=== PATIENT | male | born 1945 ===

== ENCOUNTER 2017-05-06 10:02 | Inpatient (IN) | payer OTHER ==
[2017-05-06] MEDS ORDERED: ASPIRIN 81 MG CHEWABLE TAB PO ONE (10:15)
--- NOTE | 2017-05-06 10:15 | CPEKG ---
Heart Rate: 65 RR Interval: 923 P-R Interval: 245 QRSD Interval: 100 QT Interval: 412 QTC Interval: 429 P [place]: 63 QRS [place]: 68 T Wave [place]: 114 EKG Severity - ABNORMAL ECG - EKG Impression: ACUTE AR EKG Impression: BRADYCARDIA WITH IRREGULAR RATE 39-53 EKG Impression: FIRST DEGREE AV BLOCK EKG Impression: INFERIOR INJURY, PROBABLE EARLY ACUTE INFARCT EKG Impression: CONSIDER POSTERIOR WALL INVOLVEMENT Electronically Signed By: Gloria Lindsey 06-May-2017 15:53:23
[2017-05-06] MEDS ORDERED: ASPIRIN 81 MG CHEWABLE TAB ONE (10:16)
[2017-05-06] MEDS ORDERED: NITROGLYCERIN 0.4 MG BTL SL ONE (10:16)
--- NOTE | 2017-05-06 10:20 | EDPHY ---
HPI/HX/ROS/PE/MDM Narrative: CHIEF COMPLAINT: Chest pain. HISTORY OF PRESENT ILLNESS: This patient is a 72 year old male with history of prior myocardial infarction arriving with his complaining of acute chest pain onset 1.5 hours ago, around 8:45. He is visiting from [place], arriving five days ago, and his prior CO was managed in [place]. He does not believe he had any stents placed at that time. This morning, he was swimming at the gym and when he finished, he began to feel chest pressure bilaterally. Pain was described as a heaviness, burning, with radiation to both shoulders. No diaphoresis. No nausea or vomiting. No shortness of breath. His chest discomfort today is similar to that with his prior CO. At that time he had jaw and shoulder pain as well, which he does not note at this time. He does not take any daily medications, including aspirin. No fever, chills, vomiting, diarrhea, urinary complaints, headache, lightheadedness. REVIEW OF SYSTEMS: Aside from elements discussed in the HPI, a comprehensive 10-point review of systems was reviewed and is negative. PAST MEDICAL HISTORY: CO SOCIAL HISTORY: Nonsmoker, no alcohol use. Visiting from [place]. Retired. at bedside. VITAL SIGNS: Reviewed by me GENERAL: Well-developed, well-nourished, appears somewhat uncomfortable. HEENT: Atraumatic. Eyes: No icterus, no injection. Mouth: moist mucous membranes. No erythema or lesions. Neck: supple with no adenopathy. LUNGS: Clear to auscultation bilaterally, no wheezes, rhonchi or rales. CARDIAC: Regular rate and rhythm, no rubs, murmurs or gallops. No chest wall pain. ABDOMEN: Soft, nontender, nondistended, bowel sounds normal. BACK: No CVA tenderness. EXTREMITIES: No trauma. No edema. Range of motion is normal throughout. NEURO: Alert and oriented, grossly nonfocal. SKIN: Warm and dry, no rash. No diaphoresis. PSYCHIATRIC: Normal mentation, no agitation. ED Course: 10:10 Evaluated patient. EKG shows signs of acute CO. Called cardiac alert. The 12 lead EKG was interpreted by myself. See hard copy and/or "tracemaster" electronic copy for interpretation. EKG shows ST elevation inferiorly, reciprocal changes and ST depression laterally--consistent with acute inferior myocardial infarction. Dr. Zaman present to the emergency department immediately after the cardiac alert was called. 10:22 Patient has been transferred to the clinical lab scientist under care of Dr. Zaman, rig welder. MDM: After history and physical examination, the differential for chest pain was considered, including but not limited to, myocardial ischemia, acute coronary syndrome, pulmonary embolus, chest wall pain, pleural inflammation and pulmonary infectious causes. - Data Points Medications Given: Discontinued Medications Aspirin (Aspirin) 324 mg PO EDNOW ONE Stop: 05/06/17 10:16 Last Admin: 05/06/17 10:15 Dose: 324 mg General Time Seen by Provider: 05/06/17 10:10 Initial Vital Signs: Initial Vital Signs Temperature (C) 36.6 C 05/06/17 10:05 Heart Rate 72 05/06/17 10:05 Respiratory Rate 18 05/06/17 10:05 Blood Pressure 162/127 H 05/06/17 10:05 O2 Sat (%) 97 05/06/17 10:05 O2 Delivery Mode Room Air Allergies/Adverse Reactions: No Known Allergies Allergy (Unverified 05/06/17 10:13) Home Medications: Medication Instructions Recorded Aspirin EC [Aspirin EC 81 mg (*)] 81 mg PO DAILY tab 05/07/17 Atorvastatin Calcium [Lipitor 40 40 mg PO DAILY #30 tab 05/07/17 mg (*)] Metoprolol Tartrate [Lopressor 25 25 mg PO BID #60 tab 05/07/17 mg (*)] Ticagrelor [Brilinta] 90 mg PO BID #60 tab 05/07/17 oxyCODONE/APAP 5/325 [Percocet 1 - 2 tab PO Q4HRS PRN #7 tab 05/07/17 5/325 (*)] Departure - Departure Disposition: [facility] Inpatient Acute Clinical Impression: Acute myocardial infarction Condition: Serious Report Scribed for: Gloria Lindsey Report Scribed by: Palma Christianson Date of Report: 05/06/17 Time of Report: 13:34 Physician Review and Approval Statement: Portions of this note were transcribed by a director medical affairs. I personally performed a history, physical exam, medical decision making, and confirmed accuracy of information the transcribed note.
[2017-05-06] MEDS ORDERED: LIDOCAINE 1% 300 MG/30 ML SDV ONE (10:25)
[2017-05-06] MEDS ORDERED: IOPAMIDOL (ISOVUE-370) 150 ML BTL IV ONE (10:26)
[2017-05-06] MEDS ORDERED: MIDAZOLAM 2 MG/2 ML VIAL ONE (10:26)
[2017-05-06] MEDS ORDERED: fentaNYL 100 MCG/2 ML INJ ONE (10:26)
[2017-05-06] MEDS ORDERED: FAMOTIDINE 20 MG/NACL/50 ML BAG IV ONE (10:31)
[2017-05-06] MEDS ORDERED: ATROPINE SULFATE 1 MG/10 ML SYR ONE (10:31)
[2017-05-06] MEDS ORDERED: EPINEPHrine 1 MG/10 ML SYR IVP ONE (10:31)
[2017-05-06] MEDS ORDERED: NITROGLYCERIN 1,500 MCG/15 ML VIAL MISC ONE (10:32)
[2017-05-06] MEDS ORDERED: BIVALIRUDIN 250 MG/5 ML VIAL IV ONE (10:32)
[2017-05-06] MEDS ORDERED: DOPamine/DEXTROSE/250 ML BAG IV ONE (10:32)
--- NOTE | 2017-05-06 11:15 | GHP ---
[f rep st] HISTORY AND PHYSICAL DATE OF ADMISSION: 05/06/2017 INDICATIONS: ST-elevation myocardial infarction. HISTORY OF PRESENT ILLNESS: The patient is a pleasant 72-year-old male. [facility]. He states that he has a history of coronary artery disease and kenneth ral years ago had a myocardial infarction when he was in [place], [place]. He does state that he was managed conservatively. He does not think that he underwent cardiac catheterization and does not re call having had a stent. He has done well since. Interestingly, he is not on any medications. He w as at the gym earlier today swimming when he developed the abrupt onset of precordial chest discomfor t. This was a heaviness, burning sensation, radiating up into his shoulders. As a result, he came t o the emergency department here. On arrival, he was hemodynamically stable. His initial electrocard iogram demonstrated sinus rhythm at 65 beats per minute with atrial ectopy. He had evidence of ST el evations in the inferior leads with reciprocal anterolateral ST depressions. His ST segments were as high as 2 mm. PAST MEDICAL HISTORY: Coronary artery disease, as described above. HOME MEDICATIONS: None. ALLERGIES: None. SOCIAL HISTORY: He is a lifelong nonsmoker. He does not use alcohol. He is accompanied by his . He used to work professionally in engineering and also taught. He exercises at least 6 days a [employer]. PAST SURGICAL HISTORY: He denies any recent surgical procedures. FAMILY HISTORY: Noncontributory. REVIEW OF SYSTEMS: A full 10-point review of systems was performed and was otherwise negative. PHYSICAL EXAMINATION: VITAL SIGNS: Blood pressure 166/94, heart rate currently 80 beats per minute. He does not have an oxygen requirement. He is afebrile. GENERAL: He is a healthy white male, in no acute distress. HEENT: Normocephalic, atraumatic. He has anicteric sclerae. Oropharynx unremar kable. 2+ carotids, with no jugular venous distention. RESPIRATORY: He speaks in full sentences, u sing no accessory muscles. On auscultation, he has clear lung white bilaterally. CARDIAC: Precord ial inspection is unremarkable. PMI is nondisplaced. On auscultation, he has an irregular heart rhy thm. He has no murmurs, gallops or rubs. ABDOMEN: Soft and nontender. Normoactive bowel sounds. E XTREMITIES: Warm and dry, well perfused. He has no edema. Vasculature has 2+ radial and 2+ femoral arterial pulses. DATABASE: As above. IMPRESSION: The patient is a 72-year-old male who has known coronary disease, who presents now at ap proximately 90 minutes into what appears to be an inferior wall myocardial infarction. PLAN: Plan is for urgent cardiac catheterization with plans for percutaneous revascularization. The risks, benefits, and alternatives were discussed with him. He is in agreement. Verbal consent was obtained. Further recommendations will be made pending his angiogram. /[id number]/MODL
[2017-05-06] MEDS ORDERED: TICAGRELOR 90 MG TAB ONE (11:18)
[2017-05-06] MEDS ORDERED: ONDANSETRON 4 MG/2 ML VIAL IVP PRN (11:32)
[2017-05-06] MEDS ORDERED: ASPIRIN EC 325 MG TAB PO ONE (11:32)
[2017-05-06] MEDS ORDERED: TICAGRELOR 90 MG TAB PO ONE (11:32)
[2017-05-06] MEDS ORDERED: TEMAZEPAM 15 MG CAP PO PRN (11:32)
[2017-05-06] MEDS ORDERED: OXYCODONE/APAP 5/325 TAB PO PRN (11:32)
[2017-05-06] MEDS ORDERED: ATROPINE SULFATE 1 MG/10 ML SYR IVP PRN (11:32)
[2017-05-06] MEDS ORDERED: LORazepam 2 MG/ML INJ IVP PRN (11:32)
[2017-05-06] MEDS ORDERED: HYDROCODONE/APAP 5/325 TAB PO PRN (11:32)
[2017-05-06] MEDS ORDERED: NITROGLYCERIN 0.4 MG BTL SL PRN (11:32)
--- NOTE | 2017-05-06 11:37 | PDPROPOC ---
Sedation Plan of Care Sedation Plan of Care: mental status noted ASA Classification: ASA 2 Planned drugs: fentanyl, midazolam Mallampati Score: Class 2 Mallampati Reference Image: Patient passed 3-3-2 rule?: Yes
--- NOTE | 2017-05-06 11:55 | CPIP ---
[f rep st] INVASIVE CARDIAC PROCEDURE DATE OF PROCEDURE: 05/06/2017 PROCEDURES: 1. Coronary angiography. 2. Stenting of right coronary artery with Synergy drug-eluting stent. INDICATION: Acute inferior ST-segment elevation myocardial infarction. ACCESS AND CORONARY ANGIOGRAPHY: Access and coronary angiography were performed by Dr. Mandeep Zaman. C oronary angiography was notable for a 100% occlusion of the proximal right coronary artery. Percutaneous coronary intervention of the right coronary artery. A 6-Uzbek hockey-stick catheter wa s advanced to the right coronary artery and images obtained. Angiography confirmed the presence of a 100% total occlusion of the proximal right coronary artery. Several attempts were made at trying to pass the Luge wire into the distal vessel. These were unsuccessful. The Luge wire was exchanged fo r a Hha 50 wire, which was successfully navigated into the distal vessel. The lesion behaved much more like a calcified plaque as opposed to a thrombotic occlusion. A 2.5 x 15 Emerge balloon was use d to pre-dilate the lesion. Followup angiography demonstrated TONYA-3 flow with significant residual stenosis. A 2.5 x 16 Synergy drug-eluting stent was then placed across the lesion and deployed. Fol lowup angiography demonstrated TONYA-3 flow, no residual stenosis. COMPLICATIONS: None. CONCLUSIONS: 1. Two vessel coronary artery disease. 2. Reduced left ventricular systolic function with an estimated ejection fraction of 45% and inferio r hypokinesis. 3. Status post successful percutaneous coronary intervention in the right coronary artery using Syne rgy drug-eluting stent. 4. Consider staged percutaneous coronary intervention of the left anterior descending coronary arter y prior to discharge. /[id number]/MODL
--- NOTE | 2017-05-06 11:56 | CPEKG ---
Heart Rate: 83 RR Interval: 723 P-R Interval: 172 QRSD Interval: 94 QT Interval: 384 QTC Interval: 452 P [place]: 68 QRS [place]: -17 T Wave [place]: 45 EKG Severity - ABNORMAL ECG - EKG Impression: SINUS RHYTHM EKG Impression: INFERIOR INFARCT, OLD EKG Impression: CONSIDER POSTERIOR WALL INVOLVEMENT EKG Impression: COMPARED WITH 06 MAY 2017 AT 10:13 AM, INFERIOR-POSTERIOR ACUTE INJURY PATTERN EKG Impression: HAS RESOLVED. RHYTHM IS SINUS. INFERIOR Q WAVES NOW PRESENT Electronically Signed By: Blessing Moore 06-May-2017 14:17:44
[2017-05-06 18:24] LABS: % IMMATURE GRANULYOCYTES 0.3 % (0.0-1.1); ABSOLUTE IMMATURE GRANULOCYTES 0.03 10^3/uL (0.00-0.10); ADD DIFF? NO; ADD MORPH? NO; ADD SCAN? NO; ATYPICAL LYMPHOCYTE FLAG 0 (0-99); FRAGMENT RBC FLAG 0 (0-99); HEMOGLOBIN 14.2 g/dL (13.7-17.5); LEFT SHIFT FLG 0 (0-99); LIPEMIA HEMOLYSIS FLAG 90 (0-99); MEAN CELL HEMOGLOBIN 32.6 pg (27.9-34.1); MEAN CELL HEMOGLOBIN CONCENTR. 35.5 g/dL (32.4-36.7); MEAN PLATELET VOLUME 10.2 fL (8.7-11.7); PLATELET CLUMPS FLAG 0 (0-99); PLATELET COUNT 179 10^3/uL (150-400); RED BLOOD CELL COUNT 4.35 10^6/uL (4.40-6.38); RED CELL DISTRIBUTION WIDTH 12.4 % (11.5-15.2)
[2017-05-06 18:39] LABS: ANION GAP 12 mEq/L (8-16); CALCIUM 9.5 mg/dL (8.5-10.4); CARBON DIOXIDE 21 mEq/l (22-31); CHLORIDE 106 mEq/L (97-110); GLOMERULAR FILTRATION RATE > 60; GLUCOSE 104 mg/dL (70-100); SODIUM 139 mEq/L (134-144)
[2017-05-06 18:44] LABS: CHOLESTEROL 216 mg/dL (140-220); CHOLESTEROL/HDL RATIO 5.68 RATIO (1.00-4.97); HIGH DENSITY LIPOPROTEIN 38 mg/dL (40-65); LDL/HDL RATIO 4.16 RATIO (1.00-3.64); LOW DENSITY LIPOPROTEIN 158 mg/dL (80-100); NON-HIGH DENSITY LIPOPROTEIN 178 mg/dL (90-129); TRIGLYCERIDE 100 mg/dL (40-150); VERY LOW DENSITY LIPOPROTEINS 20 mg/dL (8-25)
[2017-05-06] MEDS: ATORVASTATIN CALCIUM 40 MG TAB PO SCH (20:23)
[2017-05-06 20:48] LABS: CK-MB INTERPRETATION POSITIVE (NEGATIVE)
[2017-05-06] MEDS: TICAGRELOR 90 MG TAB PO SCH (23:24)
[2017-05-07 04:42] LABS: % IMMATURE GRANULYOCYTES 0.4 % (0.0-1.1); ABSOLUTE IMMATURE GRANULOCYTES 0.04 10^3/uL (0.00-0.10); ADD DIFF? NO; ADD MORPH? NO; ADD SCAN? NO; ATYPICAL LYMPHOCYTE FLAG 0 (0-99); FRAGMENT RBC FLAG 0 (0-99); HEMATOCRIT 39.9 % (40.0-51.0); HEMOGLOBIN 13.9 g/dL (13.7-17.5); LEFT SHIFT FLG 0 (0-99); LIPEMIA HEMOLYSIS FLAG 90 (0-99); MEAN CELL HEMOGLOBIN 32.3 pg (27.9-34.1); MEAN CELL HEMOGLOBIN CONCENTR. 34.8 g/dL (32.4-36.7); MEAN CELL VOLUME 92.8 fL (81.5-99.8); MEAN PLATELET VOLUME 10.5 fL (8.7-11.7); PLATELET CLUMPS FLAG 30 (0-99); PLATELET COUNT 159 10^3/uL (150-400); RED CELL DISTRIBUTION WIDTH 12.6 % (11.5-15.2)
[2017-05-07 05:06] LABS: ANION GAP 11 mEq/L (8-16); CALCIUM 9.2 mg/dL (8.5-10.4); CARBON DIOXIDE 22 mEq/l (22-31); CHLORIDE 107 mEq/L (97-110); GLOMERULAR FILTRATION RATE > 60; GLUCOSE 102 mg/dL (70-100); POTASSIUM 3.8 mEq/L (3.5-5.2); SODIUM 140 mEq/L (134-144)
[2017-05-07 05:50] LABS: CK-MB INTERPRETATION POSITIVE (NEGATIVE)
[2017-05-07] MEDS ORDERED: ASPIRIN EC 81 MG TAB PO SCH (09:00)
--- NOTE | 2017-05-07 09:08 | ECHO ---
[id number] + + [address] : : [place] [address] : : [phone] + Adult Echocardiographic Report + ---+ :Name: IKE BANERJEEUnique Date: 05/07/2017 07:50 AM : : Hospital Admission Number: [id number] Location: 257: :: 1945 Gender: Male Height: 60 in : :Age: 72 yrs Race: PTNP Weight: 154 lb : :Reason For Study: Eval LV Fx : : BSA: 1.7 meters2 : :History: Post Stents/NE : + ---+ MMode/2D Measurements & Calculations IVSd: 0.85 cm LVIDd: 4.3 cm FS: 38.0 % Ao root diam: 3.8 cm LVPWd: 0.96 cm LVIDs: 2.7 cm EDV(Teich): 85.1 ml ACS: 1.9 cm ESV(Teich): 26.9 ml EF(Teich): 68.4 % Normal Measurement Values: + + :LVIDd (3.5-5.7cm) IVSd (0.6-1.1cm) LVPWd (0.6-1.1cm) Aortic Root (2.0-3.7cm)Left Atrium (1.5-4.0cm): :LV Vol(d) (76-115ml) LV Vol(s) (29-48ml) Ejec Fraction (50-65%)PV Hemal (0.6- 1.2m/s) TV Hemal (0.4-1.0m/s) : :MV E Hemal (0.8-1.0m/s)MV A Hemal (0.3-1.0m/s)LVOT Hemal (0.7-1.2m/s) Asc Ao Hemal ( 0.9-1.8m/s) : + + Doppler Measurements & Calculations MV E max hemal: Ao V2 max: LV V1 max: PA V2 max: 47.9 cm/sec 120.8 cm/sec 93.8 cm/sec 80.1 cm/sec MV A max hemal: Ao max P.8 mmHg LV V1 max PG: PA max P.6 cm/sec 3.5 mmHg 2.6 mmHg MV E/A: 0.69 Left Ventricle The left ventricle is normal in size. There is normal left ventricular wall thickness. Left ventricular systolic function is low normal. Ejection Fraction = 50-55%. There is Doppler evidence for diastolic dysfunction. There is inferior wall hypokinesis. Right Ventricle The right ventricle is normal in size and function. Atria The left atrial size is normal. Right atrial size is normal. Mitral Valve The mitral valve is normal in structure and function. There is no evidence of mitral valve prolapse. There is no mitral valve stenosis. There is trace mitral regurgitation. Tricuspid Valve Normal tricuspid valve. No tricuspid regurgitation. Aortic Valve The aortic valve is normal in structure and function. The aortic valve is trileaflet. There is no aortic stenosis. There is no aortic insufficiency. Pulmonic Valve The pulmonic valve is normal in structure and function. There is no pulmonic valvular regurgitation. Great Vessels The aortic root is normal size. Pericardium/Pleural trivial pericardial effusion. Conclusion A complete two-dimensional transthoracic echocardiogram was performed (2D, M-mode, Doppler and color flow Doppler). Left ventricular systolic function is low normal. There is severe inferior wall hypokinesis involving the basal and mid segments. Ejection Fraction = 50-55%. There is Doppler evidence for diastolic dysfunction. The right ventricle is normal in size and function. The left atrial size is normal. Normal appearing valvular morphology. There is trace mitral regurgitation. Trivial pericardial effusion. Final Reading Physician: Mira Farrell signed on 05/07/2017 09:07 AM Ordering Physician: Les Zaman Performed By: Orville Lozada, SHIRLENECS
[2017-05-07] MEDS: TICAGRELOR 90 MG TAB PO SCH (09:09)
[2017-05-07] MEDS: ATORVASTATIN CALCIUM 40 MG TAB PO SCH (09:09)
[2017-05-07] MEDS: METOPROLOL TARTRATE 25 MG TAB PO SCH ×2 (09:09→09:18)
--- NOTE | 2017-05-07 09:10 | CPEKG ---
Heart Rate: 68 RR Interval: 882 P-R Interval: 140 QRSD Interval: 86 QT Interval: 432 QTC Interval: 460 P [place]: 63 QRS [place]: -25 T Wave [place]: -29 EKG Severity - ABNORMAL ECG - EKG Impression: SINUS RHYTHM EKG Impression: INFERIOR INFARCT, AGE INDETERMINATE EKG Impression: PROBABLE POSTERIOR INFARCT EKG Impression: COMPARED WITH 2016 AT 11:53, NO SIG CHANGE Electronically Signed By: Blessing Moore 07-May-2017 21:36:36
--- NOTE | 2017-05-07 09:28 | PDDXCAT ---
Diagnostic Cath Note - . Date: 05/06/17 Housekeeping Director: Austyn Indication: other (Inferior wall ST-elevation myocardial infarction.) - Procedure Access: right groin Procedure: coronary angiography - Materials Left Heart Cath size: 6F Left Heart Cath materials: JL4.0, JR4.0 - Findings-Left Heart Catheterization LM: Large caliber vessel with appropriate bifurcation into the left anterior descending and circumflex distributions. Angiographically normal. LAD: Moderate caliber vessel. Single diagonal branch. Tandem 80% followed by 70% lesions in the proximal left anterior descending. 50% lesion at the origin of the 1st diagonal which originates from the 2nd lesion within the left anterior descending. LCX: Moderate caliber. 2 obtuse marginal branches identified. 50% mid stenosis. 40% lesion at the origin of the 1st obtuse marginal branch. RCA: 100% thrombotic occlusion of the proximal vessel. Complications: None. Estimated blood loss: <50ml Closure method: other (Deferred.) Assessment: 1. Acute ST elevation inferior wall myocardial infarction. 2. Angiography demonstrating thrombotic occlusion of the proximal portion of the right coronary artery. 3. Residual disease including moderate disease of the proximal left anterior descending and 1st diagonal branch. Plan: She will be referred for percutaneous revascularization of the right coronary artery. Intervention: See separate dictation. Patient Problems: Problems Problem Status Onset Acute myocardial infarction Acute
[2017-05-07 10:36] VITALS: PULSE 71; TEMP 98.4
[2017-05-07 10:37] VITALS: BP 120/66; RESP 19; O2SAT 94
--- NOTE | 2017-05-07 14:12 | GDS ---
[f rep st] DISCHARGE SUMMARY DISCHARGE DIAGNOSES: 1. Acute inferior ST-elevated myocardial infarction, status post stenting to the right coronary artery with a Synergy 2.5 x 16 mm drug-eluting stent. 2. Severe disease within the left anterior descending artery, which was not intervened upon. There is an 80% stenosis, followed by 70% stenosis in the proximal left anterior descending artery. 3. Hyperlipidemia. HOSPITAL COURSE: For detailed H and P, please see prior dictation. Briefly, the patient is a 72-year-old male, who developed acute onset of chest discomfort while at the gym the day of admission. He had he described it as a heaviness/burning sensation radiating into his shoulders. On arrival to the hospital he was hemodynamically stable, but his EKG did show ST elevation in the inferior leads with reciprocal anterolateral ST depression. Ultimately, the patient was taken urgently to the cardiac catheterization laboratory. He was found to have a total occlusion of the right coronary artery in the proximal vessel. This was stented with a 2.5 x 16 mm Synergy drug-eluting stent. The left main was without significant disease. The left anterior descending artery had moderate to severe disease. There was an 80% lesion, followed by 70% lesion in the proximal left anterior descending artery. There was a 50% lesion of the 1st diagonal. The left circumflex artery had moderate disease with a mid 50% lesion, and a 40% to the obtuse marginal artery. The following day, the patient denied any further chest discomfort. He was monitored on telemetry and had multiple short runs of nonsustained ventricular tachycardia of 5 beats. He was started on metoprolol. He did develop a right groin hematoma post procedure and pressure was held. The following morning, his right groin was soft without any evidence of significant hematoma. His troponin peaked at 122, and at the time of discharge had decreased to 64.4. An echocardiogram the day of admission showed an ejection fraction of 50% to 55 % with inferior wall hypokinesis. PHYSICAL EXAMINATION: GENERAL: The patient appears in no acute distress. VITALS: Blood pressure 120/66, heart rate 71, oxygen saturation of 94% on room air. Afebrile. LUNGS: Clear to auscultation. No wheezes, rhonchi, or crackles auscultated. CARDIAC: Regular rate and rhythm without any significant murmurs, rubs or gallops appreciated. The right groin where access was obtained for the angiogram is clean, intact, without any evidence of infection. He does have significant ecchymosis surrounding the site, without any significant hematoma. LABORATORY: Troponin 122, 64.4. Total cholesterol 158, LDL 158, HDL 38, triglycerides 100. MEDICATIONS: Brilinta 90 mg b.i.d., Metoprolol 25 mg b.i.d., Lipitor 40 mg daily, aspirin 81 mg daily, Percocet 5/325 mg 1-2 tabs p.o. q.4 hours p.r.n. for pain. PLAN: The patient is currently stable and ready for discharge home. He has been given groin precautions. He has a known high-grade stenosis within the LAD , which will need to be intervened upon in the future. We discussed fixing his LAD prior to discharge, but he wished to do this back home in [facility]. He has been given a CD of his angiogram to take with him to his food production associate. He is aware that he is to remain on aspirin and Brilinta for a minimum of 1 year. Lipitor was started this admission; therefore, he will need a fasting lipid profile and liver function tests in 2 months. He was not started on a RANGEL -I secondary to hypotension Greater than 30 minutes was spent coordinating the patient's care and plan today. /[id number]/MODL MTDD
== END 2017-05-07 14:10 | disposition home or self-care (01) | DRG 247 ==
LOC: F2N 11:46
PROVIDERS: ADMIT Internal Medicine Cardiovascular Disease; ATTEND Internal Medicine Cardiovascular Disease
PROC: 027034Z Dilation of Coronary Artery, One Artery with Drug-eluting Intraluminal Device, Percutaneous Approach (ICD-10-PCS; principal; 2017-05-06)
PROC: 4A023N7 Measurement of Cardiac Sampling and Pressure, Left Heart, Percutaneous Approach (ICD-10-PCS; 2017-05-06)
PROC: B2111ZZ Fluoroscopy of Multiple Coronary Arteries using Low Osmolar Contrast (ICD-10-PCS; 2017-05-06)
DX: I21.19 ST elevation (STEMI) myocardial infarction involving other coronary artery of inferior wall (principal); I25.10 Atherosclerotic heart disease of native coronary artery without angina pectoris; E78.5 Hyperlipidemia, unspecified; Z79.82 Long term (current) use of aspirin
CPT/HCPCS: C1725; C1769; C1874; C1887; C9606; J0461; J0583; J1200; J1265; J1644; J2250; J2405; J3010; Q9967